=== PATIENT | female | born 1945 | race Caucasian/White ===

== ENCOUNTER → 2017-10-21 13:03 | Outpatient (CLI) | payer MEDICARE, OTHER, SELFPAY | PROVIDERS: Visit Provider Nurse Practitioner Family | DX: M85.852 Other specified disorders of bone density and structure, left thigh (principal); Z78.0 Asymptomatic menopausal state; Z87.891 Personal history of nicotine dependence | CPT/HCPCS: 77080 ==

== ENCOUNTER → 2017-12-09 07:27 | Outpatient (CLI) | payer MEDICARE, OTHER, SELFPAY ==
--- NOTE | 2017-12-09 | DI.MG.S_ITS ---
BILATERAL DIGITAL SCREENING MAMMOGRAM 3D/2D WITH CAD: 12/09/2017 CLINICAL: Routine screening. Family history of breast cancer. Comparison is made to exams dated: 10/29/2016 mammogram, 10/25/2015 mammogram, and 10/02/2014 mammogram - [facility]. The tissue of both breasts is heterogeneously dense. This may lower the sensitivity of mammography. Current study was also evaluated with a Computer Aided Detection (CAD) system. No significant masses, calcifications, or other findings are seen in either breast. There has been no significant interval change. IMPRESSION: NEGATIVE There is no mammographic evidence of malignancy. A 1 year screening mammogram is recommended.(12/10/2018) This exam was interpreted at Station ID: [id number]. NOTE: For mammograms, a report in lay terms will be sent to the patient. Approximately 15% of breast malignancies will not be visualized mammographically. In the management of a palpable breast mass, a negative mammogram must not discourage biopsy of a clinically suspicious lesion. Electronically Signed By: Attila wetzel/nelda:12/09/2017 11:29:49 letter sent: Normal Exam ACR BI-RADS Category 1: Negative 3341F
== END ==
PROVIDERS: Visit Provider Nurse Practitioner Family
DX: Z12.31 Encounter for screening mammogram for malignant neoplasm of breast (principal); Z80.3 Family history of malignant neoplasm of breast
CPT/HCPCS: 77063; 77067

== ENCOUNTER → 2018-10-04 07:35 | Outpatient (CLI) | payer MEDICARE, OTHER, SELFPAY ==
--- NOTE | 2018-10-04 08:46 | PM.TREADMILL ---
Cardiac Stress Test Report Referral & Results Date Patient Seen: 10/04/18 Time Patient Seen: 08:30 Requesting provider: Johanna Howell Indication: HTN Rest ECG: NSR Procedure Note: Today following both written and verbal informed consent the patient was exercised according to a standard Deepak protocol patient went for a total of 5 minutes 49 seconds achieving a maximum heart rate of 154 maximum systolic blood pressure of 222. This is approximately 7 METS. Exercise was terminated at this point because of fatigue. Patient was also given Cardiolite through a previously started Hep-Lock IV by the agricultural engineering technician approximately 1 minute prior to the cessation of exercise. Occasional PVCs in singles and couplets. JACINTO approximately 0% on the active scale. Impression: Low probability for ischemia. Will await perfusion imaging. Please note: Actual ECG tracings can be found in the PACS system.
--- NOTE | 2018-10-05 16:53 | DI.NM.S_ITS ---
DATE OF SERVICE: 10/04/2018 PROCEDURE: Exercise perfusion study. INDICATIONS: Chest pain, hypertension. RADIOPHARMACEUTICAL: 24.3 mCi technetium-99m Myoview IV was injected at stress and 24.3 mCi technetium-99m Myoview IV was injected at rest. CARDIAC STRESS: Patient underwent exercise perfusion study under the supervision of an attending staff. Patient walked on Deepak protocol for 5 minutes 49 seconds and achieved 104% of target heart rate. It was hypertensive blood pressure response. Baseline blood pressure 140/96. Peak blood pressure reported to be 222/110 mmHg. Baseline rhythm was sinus. Stress EKG did not reveal any obvious inducible ischemic changes. In recovery, occasional PVCs were seen. Functional aerobic impairment was 0% on active scale. She felt fatigued during stress. RAW DATA: Breast shadow was seen. There was increased subdiaphragmatic activity. GATED STUDY: Stress LV ejection fraction 67% without any obvious wall motion abnormalities. Resting end-diastolic volume is 78 mL. Transient ischemic dilatation ratio reported to be 1.24. However, on my visual inspection, I don't see any significant transient dilatation. Lung/heart ratio is normal; it is 0.31. MYOCARDIAL PERFUSION SCAN: Stress supine images revealed, as well as resting supine images, revealed small-sized mildly decreased perfusion of basal inferolateral wall which got completely resolved during prone images suggestive of tissue attenuation artifact. I don't see any convincing ischemia infarction pattern. CONCLUSION: I will call this study a normal myocardial perfusion study with evidence of tissue attenuation artifact which got resolved during prone images as stated above. Left ventricular (LV) systolic function is preserved. No obvious wall motion abnormalities. Diminished exercise tolerance. Patient walked on Deepak protocol for 5 minutes 49 seconds with hypertensive blood pressure response. No obvious ischemic changes. No significant sustained arrhythmias other than some premature ventricular contractions (PVCs) in recovery. As far as perfusion scan is concerned, this is a low-risk myocardial perfusion scan. Nury Flowers - MADDIE/ramona/ doc#: [id number]/job#: [id number] dd: 10/05/2018 12:50:00 dt: 10/05/2018 16:29:00 DICTATING MD/COPIES TO: Rylan Webber MD COPIES MNE: MEDHAT
== END ==
PROVIDERS: Visit Provider Nurse Practitioner Family
DX: R07.9 Chest pain, unspecified (principal); I10 Essential (primary) hypertension; I49.3 Ventricular premature depolarization
CPT/HCPCS: 78452; 93016; 93017; 93018; A9502

== ENCOUNTER → 2018-10-17 07:46 | Outpatient (CLI) | payer MEDICARE, OTHER, SELFPAY ==
--- NOTE | 2018-10-17 | DI.ECHO.S_ITS ---
[facility] +---------+ : : [address] : : : : [id number] : : : : Phone: [phone]+ Echocardiogram Report + + :Name: JUAN SIMON Study Date: 10/17/2018 Height: 62 in : :[facility] Weight: 145 lb : : Gender: Female BSA: 1.7 m2 : :: 1945 Age: 72 yrs BP: 170/94 mmHg: :Reason For Study: Arrhythmia : : Performed By: Ginger Porter : :Referring: IZA AGRAWAL : + + Interpretation Summary Left ventricular systolic function is normal. There are no obvious focal wall motion abnormalities noted but poor endocardial definition reduces the sensitivity for the detection of such. The right ventricle grossly appears normal in size with probable normal systolic function. There is mild to moderate mitral regurgitation. The right ventricular systolic pressure is estimated to be at least 27 mmHg based on an estimated right atrial pressure of 3 mm Hg. There is no prior echocardiogram noted for this patient. Procedure: A two-dimensional transthoracic echocardiogram with color flow and Doppler was performed. Most of the acoustic windows were suboptimal, but the best imaging was obtained from the subcostal window. The study quality was technically difficult. There is no prior echocardiogram noted for this patient. The patient was in normal sinus rhythm during the exam. Left Ventricle: The left ventricle is normal in size. There is normal left ventricular wall thickness. The ejection fraction is estimated to be 60-65%. Left ventricular systolic function is normal. There are no obvious focal wall motion abnormalities noted but poor endocardial definition reduces the sensitivity for the detection of such. Diastolic parameters suggest probable normal left ventricular diastolic function and normal filling pressures. Right Ventricle: The right ventricle grossly appears normal in size with probable normal systolic function. Atria: The left atrial size is normal. Right atrial size is normal. There is no Doppler evidence for an interatrial shunt. Mitral Valve: The mitral valve is grossly normal. There is mild to moderate mitral regurgitation. Aortic Valve: The aortic valve is trileaflet. The aortic valve opens well. No aortic regurgitation is present. Tricuspid Valve: The tricuspid valve is normal in structure and function. There is a trace or physiologic amount of tricuspid regurgitation. The right ventricular systolic pressure is estimated to be at least 27 mmHg based on an estimated right atrial pressure of 3 mm Hg. Pulmonic Valve: The pulmonic valve is not well visualized. There is no pulmonic valvular regurgitation. Great Vessels: The aortic root is normal size. The dimensions of the ascending aorta are normal. The ascending aorta is normal in size. The IVC is of normal diameter and collapses greater than 50% with a sniff. This suggests a low right atrial pressure of 3 mm Hg. Pericardium/ Pleura There is no pericardial effusion. There is no pleural effusion. MMode/2D Measurements & Calculations LVIDd: 4.3 cm Ao root diam: 3.1 cm LVIDs: 2.8 cm Aortic Jxn: 2.4 cm FS: 36.0 % asc Aorta Diam: 3.0 cm EPSS: 0.34 cm Ao Arch Diam (Prox Trans): 2.8 cm IVSd: 0.76 cm LVPWd: 0.72 cm LV pollard. diameter/BSA (cm/m^2): 2.6 LV sys. diameter/BSA (cm/m^2): 1.7 LA dimension: 3.5 cm RA long axis: 3.7 cm LA A2 area: 20.5 cm2 RA area: 14.1 cm2 LA A4 area: 14.8 cm2 RA vol: 45.3 ml LA length (vol): 4.3 cm RA : 27.2 ml/m2 LA vol: 59.3 ml IVC diam: 1.5 cm LA vol index: 35.6 ml/m2 RVDd major: 5.1 cm RVD1 (basal): 4.0 cm RVD2 (mid): 3.2 cm Doppler Measurements & Calculations Ao V2 max: 125.8 cm/sec MV E max tavares: 67.0 cm/sec Ao V2 mean: 94.2 cm/sec MV A max tavares: 69.6 cm/sec Ao max P.3 mmHg MV E/A: 0.96 Ao mean P.9 mmHg Med Peak E' Tavares: 8.1 cm/sec Ao V2 VTI: 29.8 cm E/E' med: 8.3 MV dec time: 0.24 sec MV P1/2t: 41.3 msec TR max tavares: 245.1 cm/sec MV P1/2t max tavares: 73.7 cm/sec TR max P.0 mmHg MVA(P1/2t): 5.3 cm2 PA V2 max: 79.5 cm/sec PA V2 mean: 50.8 cm/sec PA mean P.2 mmHg MR flow rate: 81.2 cm3/sec MR PISA radius: 0.58 cm Electronically signed by: Tyler Friedman M.D. on Reading Physician:10/17/2018 12:02 PM
== END ==
PROVIDERS: PCP Nurse Practitioner Family; Visit Provider Nurse Practitioner Family
DX: I34.0 Nonrheumatic mitral (valve) insufficiency (principal); I47.0 Re-entry ventricular arrhythmia
CPT/HCPCS: 93306

== ENCOUNTER → 2018-10-19 08:00 | Outpatient (CLI) | payer MEDICARE, OTHER, SELFPAY ==
--- NOTE | 2018-11-04 16:16 | PM.CARDMON.1 ---
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 Referral & Results Date Patient Seen: 10/19/18 Requesting provider: Johanna Howell Indication: Cardiac arrhythmia Duration of monitoring (days): 7 Diary information: Patient had 1 diarrhea event and 1 triggered event both associated with sinus rhythm Data: Minimum heart rate identified was 58 beats per minute at 02:32 on 10/21/2018 Maximum sinus heart rate was 151 beats per minute at 14:29 on 10/20/2018 Maximum overall heart rate was 171 beats per minute at 01:33 on 10/20/2018 during a 13 beat run of narrow complex tachycardia (this was called ventricular tachycardia by the computer but appears to be supraventricular in origin) Less than 1% of identified beats rather ventricular supraventricular ectopic in origin Impression: Essentially normal 7 day vehicle monitor technician. 1 episode of accelerated supraventricular rhythm noted above. This was 13 beats in duration. Clinical correlation suggested
--- NOTE | 2018-11-04 16:19 | P.HOLT.S_ITS ---
Knitting Machine Operator Report Referral & Results Date Patient Seen: 10/19/18 Requesting provider: Johanna Howell Indication: Cardiac arrhythmia Duration of monitoring (days): 7 Diary information: Patient had 1 diarrhea event and 1 triggered event both associated with sinus rhythm Data: Minimum heart rate identified was 58 beats per minute at 02:32 on 0 10/21/2018 Maximum sinus heart rate was 151 beats per minute at 14:29 on 10/20/2018 Maximum overall heart rate was 171 beats per minute at 01:33 on 10/20/2018 during a 13 beat run of narrow complex tachycardia (this was called ventricular tachycardia by the computer but appears to be supraventricular in origin) Less than 1% of identified beats rather ventricular supraventricular ectopic in origin Impression: Essentially normal 7 day case monitor. 1 episode of accelerated supraventricular rhythm noted above. This was 13 beats in duration. Clinical correlation suggested
== END ==
PROVIDERS: PCP Nurse Practitioner Family; Visit Provider Nurse Practitioner Family
DX: I49.9 Cardiac arrhythmia, unspecified (principal)
CPT/HCPCS: 0296T; 0298T

== ENCOUNTER → 2019-04-28 15:07 | Outpatient (CLI) | payer MEDICARE, OTHER, SELFPAY ==
--- NOTE | 2019-04-28 | DI.MRI.S_ITS ---
PROCEDURE: MR HEAD/BRAIN WO/W CON INDICATIONS: Unspecified nystagmus TECHNIQUE: Noncontrast axial T1 spin echo, axial T2 fast spin echo, sagittal and axial FLAIR, coronal T2 fast spin echo, axial gradient echo, axial diffusion and ADC through the brain. After the administration of contrast, axial and coronal T1 spin echo with fat saturation through the brain. COMPARISON: None. FINDINGS: Image quality: Excellent. CSF spaces: Basal cisterns are patent. No extra-axial fluid collections. Ventricles are normal in size and shape. Brain: No midline shift. No intracranial bleeds or masses. No abnormal intracranial enhancement. There is cerebral volume loss for age. There is moderate patchy high FLAIR signal within the periventricular and subcortical white matter. There is mild patchy high FLAIR signal intensity within the central britton. The brainstem otherwise appears normal. Diffusion-weighted images demonstrate no acute ischemic insults. No chronic ischemic insults. Normal intravascular flow voids are present. Skull and face: Calvarial marrow is normal in signal. Orbits appear normal. Sinuses: Sinuses and mastoids appear clear. IMPRESSION: 1. Volume loss. 2. Moderate white matter disease. Differential considerations include small vessel ischemic disease, diabetes mellitus, vasculitides, and demyelinating disorders, such as multiple sclerosis. 3. No acute process. No recent infarct. Dictated by: David Watkins M.D. on 04/28/2019 at 16:39 Approved by: David Watkins M.D. on 04/28/2019 at 16:41
== END ==
PROVIDERS: Referring Provider Internal Medicine; Visit Provider Internal Medicine
DX: R42 Dizziness and giddiness (principal); H55.00 Unspecified nystagmus
CPT/HCPCS: 70553

== ENCOUNTER → 2019-09-23 09:23 | Outpatient (CLI) | payer MEDICARE, OTHER, SELFPAY ==
--- NOTE | 2019-09-23 09:33 | DI.MG.S_ITS ---
Patient Name: JUAN SIMON date: 1945 Sex: F Attending Physician: Indications: Date: 09/23/2019 09:26 At the request of: IZA AGRAWAL Procedure: MM screening mammo BI BILATERAL DIGITAL SCREENING MAMMOGRAM 3D/2D WITH CAD: 09/23/2019 CLINICAL: Routine screening. Family history of breast cancer. Comparison is made to exams dated: 12/09/2017 mammogram, 10/29/2016 mammogram, and 10/25/2015 mammogram - [facility]. The tissue of both breasts is heterogeneously dense. This may lower the sensitivity of mammography. Current study was also evaluated with a Computer Aided Detection (CAD) system. No significant masses, calcifications, or other findings are seen in either breast. There has been no significant interval change. IMPRESSION: NEGATIVE There is no mammographic evidence of malignancy. A 1 year screening mammogram is recommended. This exam was interpreted at Station ID: [id number]. NOTE: For mammograms, a report in lay terms will be sent to the patient. Approximately 15% of breast malignancies will not be visualized mammographically. In the management of a palpable breast mass, a negative mammogram must not discourage biopsy of a clinically suspicious lesion. Electronically Signed By: Trevin Chopra M.D., jr/nelda:09/25/2019 08:55:18 letter sent: Normal Exam ACR BI-RADS Category 1: Negative 3341F
== END ==
PROVIDERS: Referring Provider Nurse Practitioner Family; Visit Provider Nurse Practitioner Family
DX: Z12.31 Encounter for screening mammogram for malignant neoplasm of breast (principal); Z80.3 Family history of malignant neoplasm of breast
CPT/HCPCS: 77063; 77067

== ENCOUNTER → 2019-11-10 08:36 | Outpatient (CLI) | payer MEDICARE, OTHER, SELFPAY ==
--- NOTE | 2019-11-10 | DI.MRI.S_ITS ---
PROCEDURE: MR ANGIO HEAD WO CON INDICATIONS: Dizziness and giddiness,White matter disease, unsp TECHNIQUE: Noncontrast axial 3-D [id number] MR angiogram, with 3-dimensional maximum intensity projection (MIP) reformats of the internal carotid arteries and posterior circulation then performed. COMPARISON: [facility], MR, MR HEAD/BRAIN WO/W CON, 04/28/2019, 16:01. FINDINGS: Image quality: Excellent. Anterior circulation: Intracranial internal carotid arteries demonstrate normal size and intraluminal flow signal. The flow within the paired anterior cerebral arteries is normal and symmetric distally, with the A2 segment right anterior cerebral artery fed by a congenitally prominent anterior communicating artery, from the left. The A1 segment on the right is congenitally absent as an anatomic variant. The flow within the middle cerebral arteries is normal and symmetric. The anterior communicating artery is seen. No stenoses, occlusions, or aneurysms. Posterior circulation: Visualized portions of the vertebral arteries demonstrate normal caliber, and join to form a normal appearing basilar artery. The flow within the posterior cerebral arteries is normal and symmetric. No stenoses, occlusions, or aneurysms. IMPRESSION: No aneurysm found, no arterial stenosis identified. Normal anatomic variant absence of the A1 segment right anterior cerebral artery but the more peripheral A2 segment on the right is fed by a widely patent anterior communicating artery from left to right. On review of MR scanning 04/28/19 and on this examination there is no evidence of chronically thrombosed A1 segment right [place]. Dictated by: Ranjit Mart M.D. on 11/10/2019 at 9:46 Approved by: Ranjit Mart M.D. on 11/10/2019 at 9:57
--- NOTE | 2019-11-10 | DI.MRI.S_ITS ---
PROCEDURE: MR ANGIO NECK W CON INDICATIONS: Dizziness and giddiness,White matter disease, unsp TECHNIQUE: Axial and sagittal TruFISP through the neck. Coronal dynamic MRA after the administration of contrast in the arterial and venous phases, with rotating 3-dimensional maximum intensity projection (MIP) reformats constructed from subtraction images. COMPARISON: None. FINDINGS: Image quality: Excellent. Carotid system: Great vessels demonstrate a conventional anatomy as they arise from the aortic arch. The origins of the common carotid arteries appear normal. The calibers and courses of the common carotid arteries are likewise normal. The carotid bifurcations appear normal bilaterally. The internal carotid arteries demonstrate bilateral pharyngeal loops, and are widely patent up to the [place]. Posterior circulation: The origins of the vertebral arteries are unremarkable. The more superior portions of the vertebral arteries demonstrate normal course and caliber. Vertebral arteries join to form a normal appearing basilar artery. Miscellaneous: Subclavian arteries are patent throughout. Pre-contrast images through the neck demonstrate no soft tissue abnormalities. IMPRESSION: 1. No internal carotid artery stenosis bilaterally. 2. Patent bilateral vertebral arteries. Any quantitative measurements of stenosis were performed using NASCET criteria. Dictated by: David Watkins M.D. on 11/10/2019 at 9:46 Approved by: David Watkins M.D. on 11/10/2019 at 9:47
== END ==
PROVIDERS: PCP Internal Medicine; Referring Provider Internal Medicine; Visit Provider Specialist
DX: R42 Dizziness and giddiness (principal); R90.82 White matter disease, unspecified
CPT/HCPCS: 70544; 70548; A9579

== ENCOUNTER → 2021-10-23 09:12 | Outpatient (CLI) | payer MEDICARE, OTHER, SELFPAY ==
--- NOTE | 2021-10-23 | DI.MG.S_ITS ---
BILATERAL DIGITAL SCREENING MAMMOGRAM 3D/2D WITH CAD: 10/23/2021 CLINICAL: Routine screening. Family history of breast cancer. Comparison is made to exams dated: 09/23/2019 mammogram, 12/09/2017 mammogram, and 10/29/2016 mammogram - [facility]. The tissue of both breasts is heterogeneously dense. This may lower the sensitivity of mammography. Current study was also evaluated with a Computer Aided Detection (CAD) system. There are benign calcifications in both breasts. No significant masses, calcifications, or other findings are seen in either breast. There has been no significant interval change. IMPRESSION: BENIGN There is no mammographic evidence of malignancy. A 1 year screening mammogram is recommended. Based on the Tyrer Cuzick model (a risk assessment model) the patient's lifetime risk is 6.1% and her 10 year risk is 6.1%. According to the ACR, ACS, and NCCN guidelines, an annual breast MRI exam along with mammogram is recommended if the patient's lifetime risk is 20% or greater. This exam was interpreted at Station ID: [id number]. NOTE: For mammograms, a report in lay terms will be sent to the patient. Approximately 15% of breast malignancies will not be visualized mammographically. In the management of a palpable breast mass, a negative mammogram must not discourage biopsy of a clinically suspicious lesion. Electronically Signed By: Isaias alcaraz/nelda:10/23/2021 12:26:09 letter sent: Normal Exam ACR BI-RADS Category 2: Benign Finding(s) 3342F
== END ==
PROVIDERS: PCP Internal Medicine; Referring Provider Internal Medicine; Visit Provider Internal Medicine
DX: Z12.31 Encounter for screening mammogram for malignant neoplasm of breast (principal); Z80.3 Family history of malignant neoplasm of breast
CPT/HCPCS: 77063; 77067

== ENCOUNTER → 2024-03-30 13:32 | Outpatient (CLI) | payer MEDICARE, OTHER, SELFPAY ==
--- NOTE | 2024-03-30 13:34 | DI.RAD.S_ITS ---
PROCEDURE: XR DEXA AXIAL SKELETON INDICATIONS: MENOPAUSE / OSTEOPOROSIS SCREENING COMPARISON: [facility], , XR DEXA AXIAL SKELETON, 10/21/2017, 14:39. [facility], , DEXA AXIAL SKELETON, 11/05/2015, 10:17. FINDINGS: Lumbar Spine (L3 excluded due to increased density): Bone mineral density 0.992 g/cm2, T score -1.6, statistically unchanged. Left Hip: Bone mineral density 0.630 g/cm2, T score -2.6, previously -1.6. Left Femoral Neck: Bone mineral density 0.589 g/cm2, T score -2.3. Fracture Risk Calculation (when applicable): Not reported due to osteoporosis. (T score greater or equal to -1.0 to: NORMAL) (T score from -1.1 to -2.4: OSTEOPENIA) (T score less than or equal to -2.5: OSTEOPOROSIS) IMPRESSION: Osteoporosis. Follow-up guidelines as follows: Osteoporosis: Consider a repeat DEXA and Vertebral Fracture Assessment (VFA) exam in 2 years or sooner if medically necessary, to reassess this patient's status. Osteopenia: Consider a repeat DEXA in 2-3 years to reassess this patient's status, or if there is a new clinical indication. Normal: Consider a repeat DEXA in 5 years or sooner, or if there is a new clinical indication. All treatment decisions require clinical judgment and consideration of individual patient factors, including patient preferences, comorbidities, previous drug use, risk factors not captured in the FRAX model (e.g., frailty, falls, vitamin D deficiency, increased bone turnover, interval significant decline in bone density ) and possible under- or over-estimation of fracture risk by FRAX. In addition, the NOF Guide recommends that FDA-approved medical therapies be considered in postmenopausal women and men age >= 50 years with a: * Hip or vertebral (clinical or morphometric) fracture * T-score of <=-2.5 at the spine or hip * Ten-year fracture probability by FRAX of >= 3% for hip fracture or >=20% for major osteoporotic fracture. People with diagnosed cases of osteoporosis or at high risk for fracture should have regular bone mineral density tests. For patients eligible for Medicare, routine testing is allowed once every 2 years. The testing frequency can be increased to one year for patients who have rapidly progressing disease, those who are receiving or discontinuing medical therapy to restore bone mass, or have additional risk factors. Dictated by: Mp Mejia M.D. on 03/30/2024 at 14:56 Approved by: Mp Mejia M.D. on 03/30/2024 at 14:57
== END ==
PROVIDERS: Family Provider Internal Medicine; PCP Internal Medicine; Referring Provider Internal Medicine; Visit Provider Internal Medicine
DX: M81.0 Age-related osteoporosis without current pathological fracture (principal); Z78.0 Asymptomatic menopausal state
CPT/HCPCS: 77080

== ENCOUNTER 2025-02-11 09:47 | Emergency (ER) | payer MEDICARE, OTHER, SELFPAY ==
[2025-02-11 10:03] VITALS: BP 151/72; PULSE 77; RESP 16; TEMP 36.6; O2SAT 97; BMI 26.4
--- NOTE | 2025-02-11 10:08 | ED_ITS ---
HPI - Extremity Problem General Chief complaint: Extremity Problem,Nontraumatic Stated complaint: Pronounced hard lump on RT wrist Time Seen by Provider: 02/11/25 09:51 History of Present Illness HPI Narrative: 79-year-old female presents with right wrist bump for which patient was farzaneh rned could be a blood clot but as such came into be evaluated. Patient denies any numbness tingling in the hands or fingers, trauma to the area, redness, fever, chills, body aches, chest pain, shortness of breath. Other than what is stated is 14 pt ROS is negative. Related Data Allergies Allergy/AdvReac Type Severity Reaction Status Date / Time tetracycline (TETRACYCLINE) Allergy Unknown Unverified 06/23/17 12:20 Review of Systems Review of Systems ROS Unobtainable: All systems reviewed & are unremarkable except as noted in HPI and below Exam Narrative Exam Narrative: GENERAL: 79 year old patient appears stated age. Well-developed patient, in mild distress. HEAD: Atraumatic. Normocephalic. EYES: Pupils equal round and reactive. Extraocular motions intact. No scleral icterus. No injection or drainage. BACK: Nontender without deformity or crepitance. No flank tenderness. NEURO: AOx3. SKIN: Right wrist dorsum ganglion cyst full range of motion right wrist in all full range of motion of all joints of all fingers and thumb. Motor sensory intact +2 radial pulse Initial Vital Signs Initial Vital Signs: Vital Signs Temperature 97.8 F 02/11/25 10:03 Pulse Rate 77 02/11/25 10:03 Respiratory Rate 16 02/11/25 10:03 Blood Pressure 151/72 H 02/11/25 10:03 Pulse Oximetry 97 02/11/25 10:03 Oxygen Delivery Method Room Air 02/11/25 10:03 Course Vital Signs Vital signs: Vital Signs - 8 hr 02/11/25 10:03 Temperature 97.8 F Pulse Rate 77 Respiratory Rate 16 Blood Pressure 151/72 H Pulse Oximetry 97 Oxygen Delivery Method Room Air MDM - Extremity (Nontraumatic) MDM Narrative Medical decision making narrative: All lab work, vital signs, nurse triage note, medication list, previous ER visits, and all imaging studies reviewed. We will refer patient to [facility]. Discharge Plan Departure Patient Disposition: Home Clinical Impression: Ganglion cyst Instructions: DI Ganglion Cyst Activity Restrictions/Additional Instructions: Return with new or worsening symptoms. Follow up with [facility] referral. Referrals: Debora Castellanos ARNP [Primary Care Provider, Family Practice] Stand Alone Forms: Patient Portal/API
== END 2025-02-11 10:27 | disposition home or self-care (01) ==
PROVIDERS: Emergency Provider Family Medicine; Family Provider Internal Medicine; PCP Internal Medicine
DX: M67.431 Ganglion, right wrist (principal)
CPT/HCPCS: 99281